=== PATIENT | female | born 1960 | race Caucasian/White ===

== ENCOUNTER 2019-03-24 01:33 | Emergency (ER) | payer OTHER, MEDICAID ==
[2019-03-24] MEDS: IBUPROFEN 600 MG TAB PO (05:50)
== END 2019-03-24 07:34 | disposition home or self-care (01) ==
LOC: FTE 07:34
DX: J20.8 Acute bronchitis due to other specified organisms (principal); I10 Essential (primary) hypertension
CPT/HCPCS: 71046; 93005; 99284-25